=== PATIENT | male | born 1950 | race Caucasian/White ===

== ENCOUNTER → 2019-06-04 09:30 | Outpatient (CLI) | payer MEDICARE ==
--- NOTE | 2019-06-07 13:29 | EC ---
PATIENT:KASIE BARLOW DATE OF SERVICE: 06/04/19 SEX: M MEDICAL RECORD: [id number] DATE OF : [birth year] LOCATION:[facility] AGE OF PATIENT: 69 ADMISSION DATE: 06/04/19 REFERRING PHYSICIAN: INTERPRETING PHYSICIAN: ALANA SANTIAGO MD ECHOCARDIOGRAM REPORT ECHO CHARGES 4 ECHO COMPLETE Date: 06/04/19 CLINICAL DIAGNOSIS: HTN/TRICUSPID REGURG ECHOCARDIOGRAPHIC MEASUREMENTS (adult normal given) AC root (d.<3.7cm) 2.2 cm LV Septum d (<1.2 cm> 1.3 cm Valve Excursion 1.0 cm LV Septum (systole) 1.4 cm Left Atria (s.<4.0cm> 3.2 cm LVPW d(<1.2cm) 1.5 cm RV (d.<2.3cm) 3.9 cm LVPW (sytole) 1.6 cm LV diastole(<5.6CM) 4.0 cm MV E-F(>70mm/sec) cm LV systole 3.2 cm LVOT Diameter 1.4 cm MV exc.(>10mm) 1.5 cm Est.ejection fraction (50-75%) % DOPPLER: LVIT cm/sec A 76.0 cm/sec E 65.0 cm/sec LA cm/sec RVSP 32 mmHg LVOT 105 cm/sec AOP1/2T m/s Asc. Ao 128 cm/sec RVOT 98 cm/sec RA cm/sec PA 140 cm/sec AV Gradient Peak 6.58 mmHg AV Mean 3.32 mmHg AV Area 1.4 cm MV Gradient Peak 2.21 mmHg MV Mean 0.89 mmHg MV Area cm COMMENTS: Environmental Health Officer: 2 KEVIN FISH Clinical Staff Pharmacist: 3 Dr. Page TAPE# PACS Pericardial Effusion N DATE OF SERVICE: Adequate 2D, color flow, spectral Doppler, and M-mode. Mild LVH. LV internal dimensions are normal with mild septal hypokinesis consistent with underlying paced rhythm. Overall, LV function; however, appears to be lower limits of normal at 50%. Aortic valve is sclerosed without stenosis by Doppler interrogation. Left atrium is normal at 3.2 cm. Mitral valve shows no prolapse. Trace MR. Right-sided chambers grossly normal. Trace TR. TRANSINT:[id number] Voice Confirmation ID: [id number] DOCUMENT ID: [id number] ECHOCARDIOGRAM REPORT [id number] KASIE BARLOW,ALANA Rodriguez MD at 1329 CC: [id number] DICTATION DATE: 06/07/19 1259 PAINT COATING MACHINE OPERATOR: 06/07/19 1305 DEP CLI 06/04/19 [place] [id number] [place] [id number]
== END | disposition home or self-care (01) ==
LOC: D.HCCECHO 09:30
PROVIDERS: ATTEND Internal Medicine Interventional Cardiology
DX: I10 Essential (primary) hypertension (principal)

== ENCOUNTER → 2020-03-01 10:13 | Outpatient (CLI) | payer MEDICARE, BC ==
--- NOTE | ~2020-03-01 | EC ---
PATIENT:KASIE BARLOW DATE OF SERVICE: 03/01/20 SEX: M MEDICAL RECORD: [id number] DATE OF : [birth year] [facility] AGE OF PATIENT: 70 ADMISSION DATE: 03/01/20 REFERRING PHYSICIAN: INTERPRETING PHYSICIAN: ALANA SANTIAGO MD ECHOCARDIOGRAM REPORT ECHO CHARGES 4 ECHO COMPLETE Date: 03/01/20 CLINICAL DIAGNOSIS: HX OF HTN/TRICUSPID REGURG ECHOCARDIOGRAPHIC MEASUREMENTS (adult normal given) AC root (d.<3.7cm) 2.6 cm LV Septum d (<1.2 cm> 1.0 cm Valve Excursion 1.3 cm LV Septum (systole) 1.4 cm Left Atria (s.<4.0cm> 2.8 cm LVPW d(<1.2cm) 1.4 cm RV (d.<2.3cm) 2.9 cm LVPW (sytole) 1.6 cm LV diastole(<5.6CM) 4.5 cm MV E-F(>70mm/sec) cm LV systole 3.2 cm LVOT Diameter 1.5 cm MV exc.(>10mm) 1.4 cm Est.ejection fraction (50-75%) % DOPPLER: LVIT cm/sec A 70.0 cm/sec E 48.0 cm/sec LA cm/sec RVSP 36 mmHg LVOT 83 cm/sec AOP1/2T m/s Asc. Ao 114 cm/sec RVOT 86 cm/sec RA cm/sec PA 138 cm/sec AV Gradient Peak 5.16 mmHg AV Mean 2.77 mmHg AV Area 1.5 cm MV Gradient Peak 2.45 mmHg MV Mean 1.30 mmHg MV Area cm COMMENTS: Senior Process Engineer: 2 KEVIN FISH Tool And Die Maker Apprentice: 3 Dr. Page TAPE# PACS Pericardial Effusion N DATE OF SERVICE: Adequate 2D, color flow imaging, spectral Doppler, and M-Mode. No LVH. LV internal dimension is normal. Wall motion is normal. EF is greater than or equal to 55%. Aortic valve is tricuspid. No evidence of stenosis by Doppler interrogation. Left atrium normal at 3.8 cm. Mitral valve shows no prolapse. Trace MR. Right-sided chambers are grossly normal. Trace TR. TRANSINT:[id number] Voice Confirmation ID: [id number] DOCUMENT ID: [id number] ECHOCARDIOGRAM REPORT [id number] KASIE BARLOW GREGORY A MD CC: [id number] DICTATION DATE: 03/02/20 1405 FAMILY MEDICINE RESIDENT: 03/02/202229 DEP CLI 03/01/20 [place] [id number] [place] [id number]
== END | disposition home or self-care (01) ==
LOC: D.HCCECHO 10:13
PROVIDERS: ATTEND Internal Medicine Interventional Cardiology
DX: I10 Essential (primary) hypertension (principal)